=== PATIENT | female | born 2000 | race Caucasian/White ===

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

== ENCOUNTER 2020-09-15 14:55 | Emergency (ER) | payer MEDICAID ==
[~2020-09-15] VITALS: Ht 165.1 cm; Wt 81.8 kg
[~2020-09-15 14:55] MED LIST changes: +CRUTCHES MC
[2020-09-15 15:17] VITALS: TEMP 98.3
[2020-09-15] MEDS ORDERED: CEPHALEXIN500 M1 PO (17:57)
[2020-09-15 18:22] VITALS: BP 129/74; PULSE 82
== END 2020-09-15 18:25 | disposition home or self-care (01) ==
LOC: COL.ER 14:55
DX: S91.115A Laceration without foreign body of left lesser toe(s) without damage to nail, initial encounter (principal); S91.312A Laceration without foreign body, left foot, initial encounter; W25.XXXA Contact with sharp glass, initial encounter

== ENCOUNTER 2020-09-18 14:09 | Emergency (ER) | payer MEDICAID ==
[~2020-09-18] VITALS: Ht 165.1 cm; Wt 81.8 kg
[2020-09-18 14:27] VITALS: TEMP 98
[2020-09-18 16:56] VITALS: BP 124/79; PULSE 79
== END 2020-09-18 16:58 | disposition home or self-care (01) ==
LOC: COL.ER 14:09
DX: Z48.01 Encounter for change or removal of surgical wound dressing (principal); S91.115D Laceration without foreign body of left lesser toe(s) without damage to nail, subsequent encounter; S91.312D Laceration without foreign body, left foot, subsequent encounter; W25.XXXD Contact with sharp glass, subsequent encounter

== ENCOUNTER → 2020-09-25 | Outpatient (CLI) | payer MEDICAID ==
[2020-09-25 12:01] VITALS: BP 130/85; PULSE 93; TEMP 98.3
== END ==
LOC: COL.ER 11:50
DX: Z48.02 Encounter for removal of sutures (principal)